=== PATIENT | female | born 1970 | race Caucasian/White ===

== ENCOUNTER 2016-12-11 09:35 | Emergency (ER) | payer OTHER ==
[~2016-12-11] VITALS: Ht 167.6 cm; Wt 97.8 kg
[2016-12-11 11:13] LABS: BLOOD UREA NITROGEN 14 mg/dL (7-18)
[2016-12-11 12:02] LABS: HCG UR OBC PASS
[2016-12-11 13:14] VITALS: BP 149/96
== END 2016-12-11 13:16 | disposition home or self-care (01) ==
LOC: ED 10:14
DX: N93.8 Other specified abnormal uterine and vaginal bleeding (principal); E07.9 Disorder of thyroid, unspecified
CPT/HCPCS: 36415; 76830; 80048; 81001; 81025; 82040; 85025; 99285